=== PATIENT | female | born 2000 | race Two or more races ===

== ENCOUNTER 2025-02-27 09:55 | Outpatient (RCR) | payer MEDICAID, SELFPAY ==
--- NOTE | 2025-02-27 10:25 | XR_ITS ---
Examination: Biophysical profile, ultrasound Date and time of exam: February 27, 2025 1106 hours INDICATIONS: Diagnosis maternal obesity Technique: Multiple transabdominal sonographic images of the pelvis abdomen obtained. Attention is directed to the breathing movement, gross body movement, amniotic fluid volume and tone. Findings: Amniotic fluid index 10.9 cm Total biophysical profile is 8 of 8. breathing movement is 2. Gross body movement is 2. tone is 2. Qualitative amniotic fluid volume is 2 Impression: Biophysical profile is 8 of 8.
[2025-02-27 11:22] VITALS: BP 123/80; PULSE 87; RESP 16; TEMP 36.7
== END 2025-02-27 23:59 | disposition home or self-care (01) ==
LOC: S4S1 09:55
PROVIDERS: Referring Provider Student in an Organized Health Care Education/Training Program; Visit Provider Student in an Organized Health Care Education/Training Program
DX: O99.213 Obesity complicating pregnancy, third trimester (principal); E66.9 Obesity, unspecified; Z3A.37 37 weeks gestation of pregnancy
CPT/HCPCS: 59025; 76819